=== PATIENT | female | born 1990 | race Caucasian/White ===

== ENCOUNTER 2017-11-05 11:11 | Emergency (ER) | payer BC ==
[~2017-11-05] VITALS: Ht 160 cm; Wt 92.2 kg
[2017-11-05 11:30] LABS: HEMATOCRIT 38.8 % (36.0-46.0); HEMOGLOBIN 12.8 G/DL (11.9-15.5); MCH 27.4 PG (29.0-34.0); MCV 82.9 FL (83-99); PLATELET COUNT 367 K/uL (156-360); RBC DIS.WIDTH-CV 14.3 % (11.8-14.6); RBC DIS.WIDTH-SD 42.8 % (39-53); RED BLOOD COUNT 4.68 M/uL (3.80-5.20); WHITE BLOOD COUNT 13.5 K/uL (4.1-10.2)
[2017-11-05 11:38] LABS: CHLORIDE 107 mEq/L (99-109); POTASSIUM 3.5 mEq/L (3.7-5.4); SODIUM 139 mEq/L (136-147)
[2017-11-05 11:40] LABS: GLUCOSE 110 mg/dL (70-99)
[2017-11-05 11:44] LABS: CREATININE 0.8 mg/dL (0.6-1.3); GFR ESTIMATE (CALCULATED) > 59 mL/min/; UREA NITROGEN (BUN) 11 mg/dL (9-23)
[2017-11-05 12:41] LABS: APPEARANCE CLEAR ((CLEAR)); BILIRUBIN NEGATIVE; BLOOD MODERATE; COLOR YELLOW ((YELLOW)); GLUCOSE (STRIP) NEGATIVE; KETONES NEGATIVE; LEUKOCYTES NEGATIVE; NITRITE NEGATIVE; PROTEIN (STRIP) NEGATIVE; SPECIFIC GRAVITY 1.018 (1.000-1.030); UROBILINOGEN 0.2 MG/DL (0.2-1.0)
[2017-11-05 12:41] LABS: QUANTITATIVE HCG < 4.0 MIU/ML
[2017-11-05 12:46] LABS: BACTERIA RARE /HPF; EPITHELIAL CELLS RARE /HPF; MUCUS TRACE /LPF; RED BLOOD CELLS 20-30 /HPF (0-5); UCUL ADDED? NO; WHITE BLOOD CELLS 0-5 /HPF (0-5)
[2017-11-05] MEDS ORDERED: TORADOL10 MG PO (13:50)
[2017-11-05] MEDS ORDERED: ZOFRAN4 MG PO (13:50)
[2017-11-05] MEDS ORDERED: PERCOCET 5/31 TABLET PO (13:50)
[2017-11-05] MEDS ORDERED: FLOMAX0.4 MG PO (13:50)
[2017-11-05 13:58] VITALS: BP 127/87
== END 2017-11-05 14:06 | disposition home or self-care (01) ==
LOC: EME 11:11
DX: N13.2 Hydronephrosis with renal and ureteral calculous obstruction (principal); Z87.891 Personal history of nicotine dependence
CPT/HCPCS: 74176; 80048; 81003; 84702; 85027; 99281; 99285; J1885; J2270; J2405; J7030